=== PATIENT | male | born 1965 | race Caucasian/White ===

== ENCOUNTER 2017-05-24 16:02 | Inpatient (IN) | payer MEDICARE, OTHER ==
[2017-05-24] MEDS ORDERED: IPRATROPIUM-ALBUTEROL 3 ML NEB INHALATION STA (17:36)
--- NOTE | 2017-05-24 17:39 | ED ---
General Adult HPI - General Chief complaint: Shortness of Breath Stated complaint: Dyspnea Time Seen by Provider: 05/24/17 17:30 Source: patient, RN notes reviewed Mode of arrival: wheelchair Limitations: no limitations - History of Present Illness Initial comments: Patient is a pleasant 51-year-old male presenting to the emergency Department with complaints of shortness of breath. Onset of symptoms was yesterday. Symptoms have progressively worsened since that time. Patient does have history of heart valve replacement and is on Coumadin. Last Coumadin level is reported as okay to him 2 weeks ago. No chest pain. Dyspnea does worsen with lying flat. Patient does have history of pulmonary embolism. - Related Data Home Medications Medication Instructions Recorded Confirmed Baclofen [Lioresal] 10 mg PO QID 05/24/17 05/24/17 HYDROcodone/APAP 10-325MG [[place] 1 tab PO Q6H PRN 05/24/17 05/24/17 10-325] Ipratropium Nebulized [Atrovent 0.5 mg INHALATION RT-Q4H PRN 05/24/17 05/24/17 Nebulized] Losartan Potassium 100 mg PO DAILY 05/24/17 05/24/17 Nitroglycerin Sl Tabs [Nitrostat] 0.4 mg SUBLINGUAL Q5M PRN 05/24/17 05/24/17 Warfarin [Coumadin] 2 mg PO TUTH 05/24/17 05/24/17 Warfarin [Coumadin] 5 mg PO DAILY 05/24/17 05/24/17 Allergies Allergy/AdvReac Type Severity Reaction Status Date / Time No Known Allergies Allergy Verified 05/24/17 17:40 Review of Systems ROS Statement: Those systems with pertinent positive or pertinent negative responses have been documented in the HPI. ROS Other: All systems not noted in ROS Statement are negative. Constitutional: Denies: fever Eyes: Denies: eye pain ENT: Denies: ear pain Respiratory: Reports: cough (Mild and nonproductive), dyspnea Cardiovascular: Denies: chest pain Endocrine: Denies: fatigue Gastrointestinal: Denies: abdominal pain Genitourinary: Denies: dysuria Musculoskeletal: Denies: back pain Skin: Denies: rash Neurological: Denies: weakness Past Medical History Past Medical History: Hypertension, Pulmonary Embolus (PE) History of Any Multi-Drug Resistant Organisms: None Reported Additional Past Surgical History / Comment(s): aortic valve replacement, cervical fusion Past Psychological History: No Psychological Hx Reported Smoking Status: Former smoker Past Alcohol Use History: None Reported Past Drug Use History: None Reported General Exam Limitations: no limitations General appearance: alert Head exam: Present: atraumatic Eye exam: Present: normal appearance, PERRL ENT exam: Present: normal oropharynx Neck exam: Present: normal inspection Respiratory exam: Present: normal lung sounds bilaterally Cardiovascular Exam: Present: regular rate, normal rhythm, systolic murmur GI/Abdominal exam: Present: soft. Absent: tenderness Extremities exam: Present: normal inspection. Absent: pedal edema, calf tenderness Neurological exam: Present: alert Psychiatric exam: Present: normal affect, normal mood Skin exam: Present: normal color Course Vital Signs 05/24/17 05/24/17 05/24/17 16:19 17:55 18:04 Temperature 99.6 F Pulse Rate 93 89 89 Respiratory 18 Rate Blood Pressure 119/78 O2 Sat by Pulse 96 Oximetry 05/24/17 18:47 Temperature Pulse Rate 89 Respiratory 18 Rate Blood Pressure 112/58 O2 Sat by Pulse 97 Oximetry EKG Findings - EKG Comments: EKG Findings:: Bigeminy appearance with a rate of 87. [place] 176. QRS 118. QTC 460. QTC 553. Left axis. Left anterior fascicular block. Nonspecific ST-T. Medical Decision Making - Medical Decision Making Patient reevaluated and does feel somewhat better. Patient is requesting admission at this time. Patient is aware of findings at this time. Computed tomography scan will be ordered secondary to unknown cause of dyspnea. Case was discussed in detail with Dr. cruz who did see the patient earlier today. He will admit this patient. He is aware of pending computed tomography scan. Patient has sub-therapeutic INR and he does recommend a single dose of Lovenox at this time and will further manage following this. She also request consult with Dr. Harrington from pulmonary who has previously seen this patient. - Lab Data Result diagrams: 05/24/17 17:50 05/24/17 17:50 Lab Results 05/24/17 05/24/17 05/24/17 Range/Units 17:50 17:50 17:50 WBC 9.8 (3.8-10.6) k/uL RBC 3.92 L (4.30-5.90) m/uL Hgb 11.0 L (13.0-17.5) gm/dL Hct 35.5 L (39.0-53.0) % MCV 90.6 (80.0-100.0) fL MCH 28.1 (25.0-35.0) pg MCHC 31.0 (31.0-37.0) g/dL RDW 16.1 H (11.5-15.5) % Plt Count 277 (150-450) k/uL Neutrophils % 77 % Lymphocytes % 16 % Monocytes % 4 % Eosinophils % 1 % Basophils % 1 % Neutrophils # 7.5 (1.3-7.7) k/uL Lymphocytes # 1.6 (1.0-4.8) k/uL Monocytes # 0.4 (0-1.0) k/uL Eosinophils # 0.1 (0-0.7) k/uL Basophils # 0.1 (0-0.2) k/uL Hypochromasia Moderate Poikilocytosis Slight Anisocytosis Slight PT (9.0-12.0) sec INR (<1.2) APTT (22.0-30.0) sec D-Dimer (<0.60) mg/L FEU Sodium 139 (137-145) mmol/L Potassium 4.3 (3.5-5.1) mmol/L Chloride 102 (98-107) mmol/L Carbon Dioxide 25 (22-30) mmol/L Anion Gap 12 mmol/L BUN 11 (9-20) mg/dL Creatinine 0.80 (0.66-1.25) mg/dL Est GFR (MDRD) Af Amer >60 (>60 ml/min/1.73 sqM) Est GFR (MDRD) Non-Af >60 (>60 ml/min/1.73 sqM) Glucose 106 H (74-99) mg/dL Calcium 9.5 (8.4-10.2) mg/dL Total Bilirubin 0.9 (0.2-1.3) mg/dL AST 19 (17-59) U/L ALT 32 (21-72) U/L Alkaline Phosphatase 65 (38-126) U/L Total Creatine Kinase 95 (55-170) U/L CK-MB (CK-2) 0.9 (0.0-2.4) ng/mL CK-MB (CK-2) Rel Index 0.9 Troponin I 0.017 (0.000-0.034) ng/mL NT-Pro-B Natriuret Pep pg/mL Total Protein 6.5 (6.3-8.2) g/dL Albumin 4.2 (3.5-5.0) g/dL 05/24/17 05/24/17 Range/Units 17:50 17:50 WBC (3.8-10.6) k/uL RBC (4.30-5.90) m/uL Hgb (13.0-17.5) gm/dL Hct (39.0-53.0) % MCV (80.0-100.0) fL MCH (25.0-35.0) pg MCHC (31.0-37.0) g/dL RDW (11.5-15.5) % Plt Count (150-450) k/uL Neutrophils % % Lymphocytes % % Monocytes % % Eosinophils % % Basophils % % Neutrophils # (1.3-7.7) k/uL Lymphocytes # (1.0-4.8) k/uL Monocytes # (0-1.0) k/uL Eosinophils # (0-0.7) k/uL Basophils # (0-0.2) k/uL Hypochromasia Poikilocytosis Anisocytosis PT 10.8 (9.0-12.0) sec INR 1.1 (<1.2) APTT 24.5 (22.0-30.0) sec D-Dimer 0.37 (<0.60) mg/L FEU Sodium (137-145) mmol/L Potassium (3.5-5.1) mmol/L Chloride (98-107) mmol/L Carbon Dioxide (22-30) mmol/L Anion Gap mmol/L BUN (9-20) mg/dL Creatinine (0.66-1.25) mg/dL Est GFR (MDRD) Af Amer (>60 ml/min/1.73 sqM) Est GFR (MDRD) Non-Af (>60 ml/min/1.73 sqM) Glucose (74-99) mg/dL Calcium (8.4-10.2) mg/dL Total Bilirubin (0.2-1.3) mg/dL AST (17-59) U/L ALT (21-72) U/L Alkaline Phosphatase (38-126) U/L Total Creatine Kinase (55-170) U/L CK-MB (CK-2) (0.0-2.4) ng/mL CK-MB (CK-2) Rel Index Troponin I (0.000-0.034) ng/mL NT-Pro-B Natriuret Pep 168 pg/mL Total Protein (6.3-8.2) g/dL Albumin (3.5-5.0) g/dL - Radiology Data Radiology results: image reviewed (Chest x-ray reveals no acute process. Postoperative changes.) Disposition Clinical Impression: Dyspnea Disposition: ADMITTED IP TO THIS HOSP Referrals: Nicola Blum MD [Primary Care Provider] - 1-2 days Decision Time: 20:25
[2017-05-24 18:17] LABS: Anisocytosis Slight; Basophils # (A) 0.1 k/uL (0-0.2); Basophils % (A) 1 %; CH 28.9; Eosinophils # (A) 0.1 k/uL (0-0.7); Eosinophils % (A) 1 %; HCT 35.5 % (39.0-53.0); Hypochromasia Moderate; Luc # (Auto) 0.18; Luc % (Auto) 2; Lymphocytes # (A) 1.6 k/uL (1.0-4.8); Lymphocytes % (A) 16 %; MCH 28.1 pg (25.0-35.0); MCV 90.6 fL (80.0-100.0); Mean Platelet Volume 7.9; Monocytes # (A) 0.4 k/uL (0-1.0); Monocytes % (A) 4 %; Neutrophils # (A) 7.5 k/uL (1.3-7.7); Neutrophils % (A) 77 %; Poikilocytosis Slight; RBC 3.92 m/uL (4.30-5.90); RDW 16.1 % (11.5-15.5); WBC 9.8 k/uL (3.8-10.6); WBC (Perox) 9.54
[2017-05-24 18:22] LABS: ALT 32 U/L (21-72); AST 19 U/L (17-59); Alkaline Phosphatase 65 U/L (38-126); Blood Urea Nitrogen 11 mg/dL (9-20); Calcium 9.5 mg/dL (8.4-10.2); Carbon Dioxide 25 mmol/L (22-30); Glucose 106 mg/dL (74-99); Non-African American GFR(MDRD) >60 (>60 ml/min/1.73 sqM); Potassium 4.3 mmol/L (3.5-5.1); Sodium 139 mmol/L (137-145); Total Bilirubin 0.9 mg/dL (0.2-1.3); Total Protein 6.5 g/dL (6.3-8.2)
[2017-05-24 18:25] LABS: Anion Gap 12 mmol/L; Chloride 102 mmol/L (98-107)
[2017-05-24 18:27] LABS: INR 1.1 (<1.2); Partial Thromboplastin Time 24.5 sec (22.0-30.0); Prothrombin Time 10.8 sec (9.0-12.0)
--- NOTE | 2017-05-24 18:36 | XR ---
EXAMINATION TYPE: XR chest 2V DATE OF EXAM: 05/24/2017 COMPARISON: NONE HISTORY: Short of breath TECHNIQUE: Frontal and lateral views of the chest are obtained. FINDINGS: Heart and mediastinum are normal. Lungs are clear. Diaphragm is normal. There are sternal wires. Bony thorax is intact. IMPRESSION: Normal chest. Previous cardiac surgery noted. Aortic valve prosthesis.
[2017-05-24 18:43] LABS: Creatine Kinase MB 0.9 ng/mL (0.0-2.4); Troponin I 0.017 ng/mL (0.000-0.034)
[2017-05-24] MEDS ORDERED: HYDROmorphone 1 MG/ML 1 ML SYRINGE IVP STA (19:55)
[2017-05-24] MEDS ORDERED: RX INFO: IV CONTRAST WAS GIVEN 1 EACH MISC MISCELLANE PRN (19:55)
[2017-05-24] MEDS ORDERED: ENOXAPARIN 120 MG/0.8 ML SYRINGE SQ STA (20:22)
[2017-05-24] MEDS ORDERED: methylPREDNISolone SOD SUCCI 125 MG/2 ML VIAL IV STA (20:25)
[2017-05-24] MEDS ORDERED: IPRATROPIUM-ALBUTEROL 3 ML NEB INHALATION PRN (20:25)
--- NOTE | 2017-05-24 20:39 | CT ---
EXAMINATION TYPE: CT angio chest DATE OF EXAM: 05/24/2017 8:27 PM COMPARISON: NONE HISTORY: Shortness of breath CT DLP: 516.5 mGycm Automated exposure control for dose reduction was used. CONTRAST: CTA scan of the thorax is performed with IV Contrast, patient injected with 100 mL of Omnipaque 350, pulmonary embolism protocol. There are 3-D post processed images.. FINDINGS: The lungs are clear of infiltrate. There is no evidence of a pulmonary mass. There is no pleural effu jose m. There is evidence of fatty infiltration of the liver. Heart size is normal. There is no pericardial effusion. There is no mediastinal adenopathy. There appears to be a small filling defect in a small branch of the left lower lobe pulmonary artery. This is best seen on coronal image 103. There is aneurysm of the ascending aorta that measures 3.8 cm. There is no sign of dissection. There are small bilateral bronchial lymph nodes that measure up to 1 cm. 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 NO DISSECTION. SMALL EMBOLISM IN THE LEFT LOWER LOBE PULMONAR Y ARTERY. THIS EXAM WAS DISCUSSED WITH THE ER PHYSICIAN AT 8:35 PM.
[2017-05-25] MEDS: methylPREDNISolone SOD SUCCI 125 MG/2 ML VIAL IV SCH ×4 (00:42→13:04)
[2017-05-25] MEDS: ENOXAPARIN 120 MG/0.8 ML SYRINGE SQ SCH ×2 (08:07→21:59)
[2017-05-25] MEDS: IPRATROPIUM-ALBUTEROL 3 ML NEB INHALATION SCH ×4 (09:10→21:00)
--- NOTE | 2017-05-25 09:45 | P.CNPUL ---
History of Present Illness Consult date: 05/25/17 Reason for consult: cough, COPD, pneumonia Chief complaint: Cough shortness of breath for 2 days prior to coming to the hospital History of present illness: Patient is a pleasant 51-year-old male presenting to the emergency Department with complaints of shortness of breath. Onset of symptoms was one day prior. Symptoms have progressively worsened since that time. Patient does have history of heart valve replacement and is on Coumadin. Last Coumadin level is reported as okay to him 2 weeks ago. No chest pain. Dyspnea does worsen with lying flat. Patient does have history of pulmonary embolism. Review of Systems All systems: negative (dictated above except as dictated above) Constitutional: Reports chills, Reports fever, Reports malaise, Reports sweats, Reports weakness Eyes: denies as per HPI, denies blurred vision, denies bulging eye, denies decreased vision, denies diplopia, denies discharge, denies dry eye, denies irritation, denies itching, denies pain, denies photophobia, denies loss of peripheral vision, denies loss of vision, denies tunnel vision/blind spots Ears: deny: decreased hearing, ear discharge, earache, tinnitus Ears, nose, mouth and throat: Denies headache, Denies sore throat Cardiovascular: Reports as per HPI Respiratory: Reports as per HPI Gastrointestinal: Reports as per HPI Genitourinary: Reports as per HPI Musculoskeletal: Reports as per HPI Musculoskeletal: absent: as per HPI Integumentary: Reports as per HPI Neurological: Reports as per HPI Psychiatric: Reports as per HPI Endocrine: Reports as per HPI Hematologic/Lymphatic: Reports as per HPI Allergic/Immunologic: Reports as per HPI Past Medical History Past Medical History: COPD, Hypertension, Osteoarthritis (OA), Pulmonary Embolus (PE), Sleep Apnea/CPAP/BIPAP Additional Past Medical History / Comment(s): NO CPAP USED History of Any Multi-Drug Resistant Organisms: None Reported Past Surgical History: Heart Catheterization Additional Past Surgical History / Comment(s): aortic valve replacement([facility]- SEE COPY OF CARD ON CHART), cervical fusion-HAS SCREWS, LT KNEE SRTHROSCOPY Past Anesthesia/Blood Transfusion Reactions: No Reported Reaction Smoking Status: Former smoker - Past Family History Father Family Medical History: Cancer Mother Family Medical History: Diabetes Mellitus Medications and Allergies Home Medications Medication Instructions Recorded Confirmed Type Baclofen [Lioresal] 10 mg PO QID 05/24/17 05/24/17 History HYDROcodone/APAP 10-325MG [[place] 1 tab PO Q6H PRN 05/24/17 05/24/17 History 10-325] Ipratropium Nebulized [Atrovent 0.5 mg INHALATION RT-Q4H PRN 05/24/17 05/24/17 History Nebulized] Losartan Potassium 100 mg PO DAILY 05/24/17 05/24/17 History Nitroglycerin Sl Tabs [Nitrostat] 0.4 mg SUBLINGUAL Q5M PRN 05/24/17 05/24/17 History Warfarin [Coumadin] 2 mg PO TUTH 05/24/17 05/24/17 History Warfarin [Coumadin] 5 mg PO DAILY 05/24/17 05/24/17 History Allergies Allergy/AdvReac Type Severity Reaction Status Date / Time No Known Allergies Allergy Verified 05/24/17 17:40 Physical Exam Vitals: Vital Signs Temp Pulse Pulse Resp BP BP Pulse Ox 05/25/17 09:10 83 14 95 05/25/17 07:00 97.4 F L 74 18 119/80 96 05/24/17 23:00 98.1 F 53 L 16 127/73 93 L 05/24/17 21:30 97.9 F 81 18 125/55 96 05/24/17 21:23 98.0 F 81 16 125/55 96 05/24/17 18:47 89 18 112/58 97 05/24/17 18:04 89 05/24/17 17:55 89 05/24/17 16:19 99.6 F 93 18 119/78 96 Intake and Output 05/24/17 05/25/17 05/25/17 22:59 06:59 14:59 Intake Total 250 250 Balance 250 250 Intake: Oral 250 250 Other: # Voids 4 Weight 120.202 kg - Constitutional General appearance: average body habitus, disheveled, no acute distress, obese - EENT Eyes: EOMI, PERRLA ENT: normal oropharynx Ears: bilateral: normal - Neck Neck: no lymphadenopathy, normal ROM Carotids: negative: upstroke normal, upstroke delayed, upstroke diminished, upstroke bounding, bruit absent, bruit present Thyroid: bilateral: normal size - Respiratory Respiratory: right: diminished (At base), bilateral: CTA, dullness, negative: rales, rhonchi, wheezing, prolonged expiration, prolonged inspiration - Cardiovascular Rhythm: regular Heart sounds: normal: S1, S2 - Gastrointestinal General gastrointestinal: no organomegaly, soft, no tenderness - Integumentary Normal - Neurologic Neurologic: CNII-XII intact - Musculoskeletal Musculoskeletal: gait normal - Psychiatric Psychiatric: A&O x's 3 Results EKG revealed left anterior fascicular block, nonspecific ST and T wave changes with prolonged QT interval Computed tomography scan of the chest revealed 3.8 cm aneurysm no dissection, small embolism in the left lower lobe pulmonary artery - Laboratory Findings CBC and BMP: 05/24/17 17:50 05/24/17 17:50 PT/INR, D-dimer PT 10.8 sec (9.0-12.0) 05/24/17 17:50 INR 1.1 (<1.2) 05/24/17 17:50 D-Dimer 0.37 mg/L FEU (<0.60) 05/24/17 17:50 Abnormal lab findings: Abnormal Labs 05/24/17 05/24/17 17:50 17:50 RBC 3.92 L Hgb 11.0 L Hct 35.5 L RDW 16.1 H Glucose 106 H - Diagnostic Findings CT scan - chest: other (As dictated above) Assessment and Plan Plan: Acute pulmonary embolism acute COPD exacerbation subtherapeutic PT/INR recent heart valve surgery Would recommend to continue bronchodilators and IV steroids and breathing treatments patient has been on Lovenox Agri will be resuming Coumadin once INR is over 2.5 her DC the Lovenox Time with Patient: Greater than 30
[2017-05-25 11:50] LABS: Glucose,Whole Blood 248 mg/dL (75-99)
[2017-05-25] MEDS ORDERED: INSULIN LISPRO (humaLOG) 300 UNIT/3 ML VIAL SQ SCH (12:30)
[2017-05-25] MEDS: INSULIN LISPRO (humaLOG) 300 UNIT/3 ML VIAL SQ SCH ×3 (13:04→22:00)
--- NOTE | 2017-05-25 13:59 | P.CRDCN ---
<Rajni Reed Darren - Last Filed: 05/25/17 13:41> History of Present Illness Consult date: 05/25/17 History of present illness: This is a 51-year-old male. Past medical history significant for aortic valve replacement from 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 He also has a history of hypertension, COPD, pulmonary embolism. Patient presents with complaints of acute shortness of breath described as difficulty to take in enough air. Patient states this was similar to pulmonary embolism he had back 4 -5 years ago. He denies chest pain, dizziness, palpitations, nausea, vomiting or diaphoresis. He states the shortness of breath has gotten better since he's been here in the hospital and using oxygen. He follows with a client application support specialist out of [facility] regularly. He states he has had a cardiac catheterization in the past but required no stenting and has no coronary artery disease that he is aware of. EKG done shows sinus mechanism with bigemminy and prolonged QT with a rate of 87 beats per minute. There is no old EKG for comparison. Hemoglobin 11.0, potassium 4.3, B1 11, creatinine 0.80, INR 1.1, troponin negative 1, BNP 168, d-dimer 0.37. Review of Systems REVIEW OF SYSTEMS: Patient denies any chest discomfort. Mild shortness of breath, improving. No diaphoresis. Denies headache, dizziness, blurred vision, double vision. No dyspnea on exertion. Patient denies any stomach discomfort. No nausea, vomiting. No hematochezia. No hematemesis. Denies any black stools or blood in his stools. No syncope. No palpitations. No cough. No recent fever or chills. No muscle weakness or numbness. Past Medical History Past Medical History: COPD, Hypertension, Osteoarthritis (OA), Pulmonary Embolus (PE), Sleep Apnea/CPAP/BIPAP Additional Past Medical History / Comment(s): NO CPAP USED History of Any Multi-Drug Resistant Organisms: None Reported Past Surgical History: Heart Catheterization Additional Past Surgical History / Comment(s): aortic valve replacement([facility]- SEE COPY OF CARD ON CHART), cervical fusion-HAS SCREWS, LT KNEE SRTHROSCOPY Past Anesthesia/Blood Transfusion Reactions: No Reported Reaction Smoking Status: Former smoker - Past Family History Father Family Medical History: Cancer Mother Family Medical History: Diabetes Mellitus Medications and Allergies Home Medications Medication Instructions Recorded Confirmed Type Baclofen [Lioresal] 10 mg PO QID 05/24/17 05/24/17 History HYDROcodone/APAP 10-325MG [[place] 1 tab PO Q6H PRN 05/24/17 05/24/17 History 10-325] Ipratropium Nebulized [Atrovent 0.5 mg INHALATION RT-Q4H PRN 05/24/17 05/24/17 History Nebulized] Losartan Potassium 100 mg PO DAILY 05/24/17 05/24/17 History Nitroglycerin Sl Tabs [Nitrostat] 0.4 mg SUBLINGUAL Q5M PRN 05/24/17 05/24/17 History Warfarin [Coumadin] 2 mg PO TUTH 05/24/17 05/24/17 History Warfarin [Coumadin] 5 mg PO DAILY 05/24/17 05/24/17 History Allergies Allergy/AdvReac Type Severity Reaction Status Date / Time No Known Allergies Allergy Verified 05/24/17 17:40 Physical Exam Vitals: Vital Signs Temp Pulse Pulse Resp BP BP Pulse Ox 05/25/17 12:15 83 14 05/25/17 12:04 83 14 05/25/17 09:20 83 16 05/25/17 09:10 83 14 95 05/25/17 07:00 97.4 F L 74 18 119/80 96 05/24/17 23:00 98.1 F 53 L 16 127/73 93 L 05/24/17 21:30 97.9 F 81 18 125/55 96 05/24/17 21:23 98.0 F 81 16 125/55 96 05/24/17 18:47 89 18 112/58 97 05/24/17 18:04 89 05/24/17 17:55 89 05/24/17 16:19 99.6 F 93 18 119/78 96 Intake and Output 05/24/17 05/25/17 05/25/17 22:59 06:59 14:59 Intake Total 250 250 Balance 250 250 Intake: Oral 250 250 Other: # Voids 4 Weight 120.202 kg GENERAL: This is a 51-year-old male in no apparent distress at the time of my examination. HEENT: Head is atraumatic, normocephalic. Pupils are equal, round. Sclerae anicteric. Conjunctivae are clear. Mucous membranes of the mouth are moist. Neck is supple. There is no jugular venous distention. No carotid bruit is heard. LUNGS: Clear to auscultation no wheezes, rales or rhonchi. No chest wall tenderness is noted on palpation or with deep breathing. Diminished air entry. HEART: Regular rate and rhythm with systolic click, no rubs or gallops. S1 and S2 heard. ABDOMEN: Soft, nontender. Bowel sounds are heard. No organomegaly noted. EXTREMITIES: 2+ peripheral pulses with no evidence of peripheral edema and no calf tenderness noted. NEUROLOGIC: Patient is awake, alert and oriented x3. Results 05/24/17 17:50 05/24/17 17:50 Cardiac Enzymes 05/24/17 05/24/17 Range/Units 17:50 17:50 AST 19 (17-59) U/L CK-MB (CK-2) 0.9 (0.0-2.4) ng/mL Troponin I 0.017 (0.000-0.034) ng/mL Coagulation 05/24/17 Range/Units 17:50 PT 10.8 (9.0-12.0) sec APTT 24.5 (22.0-30.0) sec CBC 05/24/17 Range/Units 17:50 WBC 9.8 (3.8-10.6) k/uL RBC 3.92 L (4.30-5.90) m/uL Hgb 11.0 L (13.0-17.5) gm/dL Hct 35.5 L (39.0-53.0) % Plt Count 277 (150-450) k/uL Comprehensive Metabolic Panel 05/24/17 Range/Units 17:50 Sodium 139 (137-145) mmol/L Potassium 4.3 (3.5-5.1) mmol/L Chloride 102 (98-107) mmol/L Carbon Dioxide 25 (22-30) mmol/L BUN 11 (9-20) mg/dL Creatinine 0.80 (0.66-1.25) mg/dL Glucose 106 H (74-99) mg/dL Calcium 9.5 (8.4-10.2) mg/dL AST 19 (17-59) U/L ALT 32 (21-72) U/L Alkaline Phosphatase 65 (38-126) U/L Total Protein 6.5 (6.3-8.2) g/dL Albumin 4.2 (3.5-5.0) g/dL Current Medications Generic Name Dose Route Start Last Admin Trade Name Freq PRN Reason Stop Dose Admin Albuterol/Ipratropium 3 ml 05/25/17 08:00 05/25/17 12:04 Duoneb 0.5 Mg-3 Mg/3 Ml Soln INHALATION 3 ml RT-QID SNOW Administration Albuterol/Ipratropium 3 ml 05/24/17 20:25 Duoneb 0.5 Mg-3 Mg/3 Ml Soln INHALATION RT-Q4H PRN Shortness Of Breath Or Wheezing Enoxaparin Sodium 120 mg 05/25/17 09:00 05/25/17 08:07 Lovenox SQ 120 mg Q12HR SNOW Administration Insulin Human Lispro 0 unit 05/25/17 12:30 Humalog SQ AC-TID SNOW Methylprednisolone Sodium Succinate 60 mg 05/25/17 00:00 05/25/17 05:57 Solu-Medrol IV 60 mg Q6HR SNOW Administration Miscellaneous Information 1 each 05/24/17 19:55 Rx Info: Iv Contrast Was Given MISCELLANE 05/26/17 19:55 DAILY PRN Per Protocol Warfarin Sodium 10 mg 05/25/17 18:00 Coumadin PO DAILY@1800 SNOW Intake and Output 05/24/17 05/25/17 05/25/17 22:59 06:59 14:59 Intake Total 250 250 Balance 250 250 Intake: Oral 250 250 Other: # Voids 4 Weight 120.202 kg 05/24/17 17:50 05/24/17 17:50 Assessment and Plan Plan: ASSESSMENT 1. Abnormal EKG 2. History of mechanical aortic valve replacement on chronic anticoagulation 3. Subtherapeutic INR 4. Pulmonary embolism PLAN Obtain old EKG; Perform echocardiogram; We will continue to follow this patient, further recommendations will be based on clinical course. Nurse Practitioner note has been reviewed, I agree with a documented findings and plan of care. Patient was seen and examined. <Shannan Christian - Last Filed: 05/26/17 05:52> Physical Exam Vitals: Vital Signs Temp Pulse Pulse Resp BP Pulse Ox 08/22/17 22:19 97.0 F L 72 16 124/62 100 05/25/17 21:13 80 05/25/17 21:00 78 05/25/17 16:50 82 95 05/25/17 16:40 80 05/25/17 15:00 97.6 F 95 16 126/79 93 L 05/25/17 12:15 83 14 05/25/17 12:04 83 14 05/25/17 09:20 83 16 05/25/17 09:10 83 14 95 05/25/17 07:00 97.4 F L 74 18 119/80 96 Intake and Output 05/25/17 05/25/17 05/26/17 14:59 22:59 06:59 Intake Total 500 590 Balance 500 590 Intake: Oral 500 590 Other: # Voids 3 1 2 Results 05/24/17 17:50 05/24/17 17:50 Current Medications Generic Name Dose Route Start Last Admin Trade Name Freq PRN Reason Stop Dose Admin Hydrocodone Bitart/Acetaminophen 1 each 05/25/17 13:09 05/25/17 21:46 [place] 10 PO 1 each Q6H PRN Administration Moderate Pain Albuterol/Ipratropium 3 ml 05/25/17 08:00 05/25/17 21:00 Duoneb 0.5 Mg-3 Mg/3 Ml Soln INHALATION 3 ml RT-QID SNOW Administration Albuterol/Ipratropium 3 ml 05/24/17 20:25 Duoneb 0.5 Mg-3 Mg/3 Ml Soln INHALATION RT-Q4H PRN Shortness Of Breath Or Wheezing Baclofen 10 mg 05/25/17 19:35 05/25/17 21:47 Lioresal PO 10 mg QID PRN Administration Muscle Spasm Enoxaparin Sodium 120 mg 05/25/17 09:00 05/25/17 21:59 Lovenox SQ 120 mg Q12HR SNOW Administration Insulin Human Lispro 0 unit 05/25/17 13:00 05/25/17 22:00 Humalog SQ 8 unit ACHS SNOW Administration Protocol Methylprednisolone Sodium Succinate 60 mg 05/25/17 00:00 05/26/17 00:00 Solu-Medrol IV 60 mg Q6HR SNOW Administration Miscellaneous Information 1 each 05/24/17 19:55 Rx Info: Iv Contrast Was Given MISCELLANE 05/26/17 19:55 DAILY PRN Per Protocol Warfarin Sodium 10 mg 05/25/17 18:00 05/25/17 17:39 Coumadin PO 10 mg DAILY@1800 SNOW Administration Intake and Output 05/25/17 05/25/17 05/26/17 14:59 22:59 06:59 Intake Total 500 590 Balance 500 590 Intake: Oral 500 590 Other: # Voids 3 1 2 05/24/17 17:50 05/24/17 17:50 Assessment and Plan Plan: patient's baseline EKG showed bigeminal pattern of PVCs. It's difficult to assess QT interval accurately. We'll repeat the EKG . patient's echocardiogram showed high gradient across the prosthetic aortic valve. Clinically, the valve sounds appear to be crisp. We'll try to get reports of the previous echocardiogram to compare the gradients. Patient, however, doesn' t want to consider any further valve surgery. Further recommendations to follow.
[2017-05-25] MEDS: HYDROcodone/APAP 10-325MG 1 EACH TAB PO PRN ×2 (14:06→21:46)
[2017-05-25 17:16] LABS: Glucose,Whole Blood 274 mg/dL (75-99)
[2017-05-25] MEDS: WARFARIN 10 MG TAB PO SCH (17:39)
[2017-05-25 20:38] LABS: Glucose,Whole Blood 248 mg/dL (75-99)
--- NOTE | 2017-05-25 21:22 | PN ---
This patient is a 51-year-old white male who was admitted with acute shortness of breath and ended up with pulmonary emboli, large in the right, very similar to what he had back in November of 2014. At this time he is kept on Lovenox, and also we put him on Coumadin; we started his Coumadin again. 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 He has had borderline hypertension. SOCIAL HISTORY: He is a nonsmoker; stopped now within the last year. He has a history of asthma. He also has some early COPD. His pulmonary emboli was documented on CT scan. REVIEW OF SYSTEMS: CARDIOPULMONARY: He has some shortness of breath but he rests much more comfortably this morning. No orthopnea. No hemoptysis. GI: No hematemesis or hematochezia. No nausea. No vomiting. No melena. : Normal urination. NEUROMUSCULAR: He has aches and pains in his neck and upper back from post surgery, still with a fair amount of arthritis. Lower legs have some cramping. PHYSICAL EXAMINATION: This morning his blood pressure is 127/73, heart rate in the 50s to 74. Temperature is 97.4, respiratory rate 18. He is on 3 L of oxygen that gives him an oxygen saturation of 96. EYES: Pupils are equal, round, reactive to light and accommodation. ENT showed tympanic membranes and pharynx to be negative. Neck is supple with a midline trachea. No carotid bruits. CHEST: He has some wheezes in the right upper lobe and you can also hear the clicking of his heart valve. He is in sinus rhythm. Negative S3. Negative S4. No S2 split. ABDOMEN: Soft, non-tender to palpation. No masses. No organomegaly. LOWER EXTREMITIES: Swelling is negative. INTEGUMENTARY: As mentioned above. ASSESSMENT: 1. Acute pulmonary emboli. For the most part, patient's Coumadin level stays stable and then it does drop from time to time. Patient denies missing medication. Will try to see if we can get insurance to pay for either Eliquis or Xarelto. Will ask for pulmonology consultation. 2. Aortic valve replacement. We will ask Cardiology to see the patient for evaluation. 3. Borderline hypertension, but today it is stable. 4. History of chronic obstructive pulmonary disease and asthma. We have him on updrafts for this, at times low-dose steroids. 5. Cervical spine arthritis which is severe postoperatively. He is on [place] for pain. We will keep him on Lovenox 120 mg q.12 at this point. DuoNeb every 4 hours p.r.n. for the wheeze. His prognosis is guarded. Plan is to anticoagulate him and either Coumadin to therapeutic level or alternative. Please refer to my orders. MTDD
--- NOTE | 2017-05-25 21:39 | HP ---
DATE OF ADMISSION: 05/24/2017 CHIEF COMPLAINT: Dyspnea, problems with breathing acutely. 51-year-old white male that came to the emergency room from my office with acute shortness of breath. He has had past medical history of aortic valve replacement and also cervical fusion as far as surgery goes. He is a former cigarette smoker. No alcohol and questionable use of marijuana but no other abusive drug. He was hospitalized at [facility] on 11/30/14 with the same dyspnea. Upon admission a V/Q scan was done which showed a high probability of pulmonary emboli. At that time he had been on Lovenox and has been switched over to a therapeutic Coumadin. He was in moderate amount of distress at that period of time and it resolved quite quickly and when we finally got his Coumadin level within normal limits he was discharged home. At this time he is having the same type of symptomatology. He has no known allergies. His medications are that of [place] 10/325 every six hours. He takes updrafts at home with albuterol/Atrovent every four hours. He is on losartan 100 mg daily. He is on nitroglycerin p.r.n. He is on warfarin 7 mg at bedtime, a 2 and a 5. He came into the hospital at this time with a decrease in his Coumadin level. His lab work came back with a WBC of 9.8, 11 hemoglobin. His platelet count is 277. HIs PT and INR were 1 and 10 respectively. He had a d-dimer that was only 0.37. Electrolytes were within normal limits as was his creatinine of 0.8 and a BUN of 11. His troponins were negative. Albumin was negative. His BNP was only 128. REVIEW OF SYSTEMS: CARDIOPULMONARY: Shortness of breath with exertion and also just sitting. Dyspnea had been going on for over 24 hours. He had no chest pain other than that. No paroxysmal nocturnal dyspnea. No orthopnea. GI: No hematemesis, melena or hematochezia. No nausea, no vomiting. : Urination is normal. NEUROMUSCULAR: Just severe pain in his shoulders and neck from previous surgery and injuries. VASCULAR: Has been negative in the past. INTEGUMENTARY: Lower skin has been within normal limits except for some bruises and excoriation of previous. PHYSICAL EXAMINATION: VITAL SIGNS: Upon admission he had a blood pressure initially of 138/58. His heart rate was 110, respiratory rate 22, temperature 98. EYES: Pupils are equal, round, react to light and accommodation. ENT: Showed tympanic membranes and pharynx to be negative. NECK: Supple with midline trachea. CHEST: Has some wheezes. HEART: Sinus rhythm with no murmur. ABDOMEN: Soft, nontender with no organomegaly. SPINE: His cervical spine has decreased range of motion. The anterior incision is seen from his previous surgery. He has decreased range of motion of the lower back. He has decreased pulses in his lower legs. INTEGUMENTARY: Within normal limits except for some stasis dermatitis and also some varicose veins. RECTAL: Not performed. ORDERS: Consultation was completed with cardiology because of valve. Dr. Eb Harrington was also consulted because of the pulmonary emboli. From a medication point of view, the patient had been started on Solu-Medrol 60 mg, Xopenex 120 q12, updrafts accordingly. We also started him on Coumadin to be changed over to oral Coumadin in the future. Please refer to my orders. ISIDRO
[2017-05-25] MEDS: BACLOFEN 10 MG TAB PO PRN (21:47)
[2017-05-26] MEDS: HYDROcodone/APAP 10-325MG 1 EACH TAB PO PRN ×3 (06:13→19:12)
[2017-05-26] MEDS: methylPREDNISolone SOD SUCCI 125 MG/2 ML VIAL IV SCH ×4 (06:13→18:12)
[2017-05-26] MEDS: IPRATROPIUM-ALBUTEROL 3 ML NEB INHALATION SCH ×4 (07:18→21:01)
[2017-05-26 07:28] LABS: Glucose,Whole Blood 232 mg/dL (75-99)
[2017-05-26] MEDS: ENOXAPARIN 120 MG/0.8 ML SYRINGE SQ SCH ×2 (08:01→20:56)
[2017-05-26] MEDS: INSULIN LISPRO (humaLOG) 300 UNIT/3 ML VIAL SQ SCH ×4 (08:01→20:56)
[2017-05-26 08:33] LABS: Prothrombin Time 10.5 sec (9.0-12.0)
--- NOTE | 2017-05-26 10:37 | ECHOF ---
Referral Reason:Shortness of breath MEASUREMENTS -------- HEIGHT: 182.9 cm WEIGHT: 129.3 kg BP: IVSd: 1.5 cm (0.6 - 1.1) LVIDd: 6.2 cm (3.9 - 5.3) LVPWd: 1.3 cm (0.6 - 1.1) IVSs: 1.7 cm LVIDs: 4.0 cm LVPWs: 1.6 cm LAESV Index (A-L): 32.43 ml/m Ao Diam: 2.9 cm (2.0 - 3.7) LA Diam: 4.8 cm (2.7 - 3.8) MV EXCURSION: 20.694 mm (> 18.000) MV EF SLOPE: 102 mm/s (70 - 150) EPSS: 0.3 cm MV E Haroldo: 0.97 m/s MV DecT: 307 ms MV A Haroldo: 1.10 m/s MV E/A Ratio: 0.88 AV maxP.86 mmHg AV meanP.99 mmHg RAP: 5.00 mmHg RVSP: 24.22 mmHg FINDINGS -------- Sinus rhythm. This was a technically adequate study. There is moderate concentric left ventricular hypertrophy. Overall left ventricular systolic function is low-normal with, an EF between 50 - 55 %. The right ventricle is normal in size. LA is moderately dilated 34-39 ml/m2 The right atrial size is normal. Peak/mean gradient across the Aortic Valve is 100.86mmHg / 56.99mmHg. 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 Mild mitral annular calcification present. Mild mitral regurgitation is present. Mild tricuspid regurgitation present. Right ventricular systolic pressure is normal at < 35 mmHg. There is borderline pulmonary artery hypertension. There is no pulmonic regurgitation present. The aortic root size is normal. There is no pericardial effusion. Pt had Mechanical Aov replacement in 2002 Chordal Fermin with possible Lvot obstruction gradient is aliasing, Silverio recommended for evaluation of valve. CONCLUSIONS -------- 1. There is moderate concentric left ventricular hypertrophy. 2. There is borderline pulmonary artery hypertension. 3. Pt had Mechanical Aov replacement in 2002 4. Chordal Fermin with possible Lvot obstruction gradient is aliasing, Silverio recommended for evaluation of valve. 5. Overall left ventricular systolic function is low-normal with, an EF between 50 - 55 %. 6. LA is moderately dilated 34-39 ml/m2 7. Peak/mean gradient across the Aortic Valve is 100.86mmHg / 56.99mmHg. 8. 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 9. Mild mitral annular calcification present. 10. Mild mitral regurgitation is present. 11. Mild tricuspid regurgitation present. 12. Right ventricular systolic pressure is normal at < 35 mmHg. MOLECULAR PATHOLOGIST: Lexus Sutherland RDCS
[2017-05-26] MEDS: ALPRAZolam 0.25 MG TAB PO PRN ×2 (10:48→19:12)
[2017-05-26 11:42] LABS: Glucose,Whole Blood 266 mg/dL (75-99)
--- NOTE | 2017-05-26 12:21 | P.PN ---
Subjective We are seeing the patient today in follow-up from consultation yesterday. An echocardiogram was ordered and performed and shows a significant gradient across the aortic valve. 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 The echocardiogram was done in November 2015 and shows a mean gradient of 29 with a peak of 57. There is significant increase in the new study. Objective - Vital Signs Vital signs: Vital Signs Temp 98 F 05/26/17 07:00 Pulse 71 05/26/17 11:23 Resp 16 05/26/17 07:00 BP 114/73 05/26/17 07:00 Pulse Ox 95 05/26/17 07:19 Intake & Output 05/25/17 05/26/17 05/26/17 18:59 06:59 18:59 Intake Total 1090 Balance 1090 Intake: Oral 1090 Other: # Voids 3 2 - Exam GENERAL: Well-appearing, well-nourished and in no acute distress. NECK: Supple without JVD or thyromegaly. LUNGS: Breath sounds clear to auscultation bilaterally. Respiration equal and unlabored. No wheezes, rales or rhonchi. Diminished air entry. HEART: Regular rate and rhythm with crisp systolic click, rubs or gallops. S1 and S2 heard. EXTREMITIES: Normal range of motion, no edema. No clubbing or cyanosis. Peripheral pulses intact and strong. - Labs CBC & Chem 7: 05/24/17 17:50 05/24/17 17:50 Labs: Abnormal Lab Results - Last 24 Hours (Table) 05/25/17 05/25/17 05/26/17 Range/Units 17:15 20:37 07:22 POC Glucose (mg/dL) 274 H 248 H 232 H (75-99) mg/dL 05/26/17 Range/Units 11:39 POC Glucose (mg/dL) 266 H (75-99) mg/dL Assessment and Plan Plan: ASSESSMENT 1. Abnormal EKG 2. History of mechanical aortic valve replacement on chronic anticoagulation 3. Subtherapeutic INR 4. Pulmonary embolism PLAN We recommended that the patient undergo a HAWK to further evaluate his valve. I have discussed the risks, benefits and alternative therapies for the above- mentioned procedure and for both sedation/analgesia as they pertain to this patient. The patient has indicated understanding and acceptance of the risks and procedures discussed. He has agreed to proceed with a HAWK tomorrow. It has been scheduled for 8 AM. The patient is to be nothing by mouth after midnight. Continue current dose of Coumadin. Nurse Practitioner note has been reviewed, I agree with a documented findings and plan of care. Patient was seen and examined.
--- NOTE | 2017-05-26 13:00 | US ---
EXAMINATION TYPE: US venous doppler duplex LE DATE OF EXAM: 05/26/2017 12:39 PM COMPARISON: NONE CLINICAL HISTORY: r/o dvt. History of Pulmonary embolism, patient currently taking blood thinners SIDE PERFORMED: Bilateral TECHNIQUE: The lower extremity deep venous system is examined utilizing real time linear array sonog gilbert with graded compression, doppler sonography and color-flow sonography. VESSELS IMAGED: External Iliac Vein (EIV) Common Femoral Vein Deep Femoral Vein Greater Saphenous Vein * Femoral Vein Popliteal Vein Small Saphenous Vein * Proximal Calf Veins (* superficial vessels) Right Leg: Negative for DVT Left Leg: Negative for DVT IMPRESSION: No diagnostic evidence for DVT as visualized.
[2017-05-26 17:15] LABS: Glucose,Whole Blood 226 mg/dL (75-99)
[2017-05-26] MEDS: WARFARIN 10 MG TAB PO SCH (18:12)
[2017-05-26 20:18] LABS: Glucose,Whole Blood 276 mg/dL (75-99)
[2017-05-27] MEDS: BACLOFEN 10 MG TAB PO PRN (00:43)
[2017-05-27] MEDS: methylPREDNISolone SOD SUCCI 125 MG/2 ML VIAL IV SCH ×2 (00:45→05:45)
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
[2017-05-27] MEDS ORDERED: MIDAZOLAM 2 MG/2 ML VIAL ONE (07:59)
[2017-05-27] MEDS ORDERED: fentaNYL (PF) 50 MCG/ML 2 ML AMP ONE (07:59)
[2017-05-27 08:01] LABS: INR 1.2 (<1.2); Partial Thromboplastin Time 27.4 sec (22.0-30.0)
[2017-05-27] MEDS ORDERED: SODIUM CHLORIDE 0.9% 1,000 ML IV ONE (08:12)
[2017-05-27 08:14] LABS: Glucose,Whole Blood 245 mg/dL (75-99)
[2017-05-27] MEDS: BENZOCAINE SPRAY 1 SPRAY CAN MUCOUS MEM ONE ×2 (08:21→08:25)
[2017-05-27] MEDS: MIDAZOLAM 2 MG/2 ML VIAL IVP ONE ×2 (08:21→08:58)
[2017-05-27] MEDS ORDERED: fentaNYL (PF) 50 MCG/ML 2 ML AMP IVP ONE (08:21)
[2017-05-27] MEDS ORDERED: MIDAZOLAM 2 MG/2 ML VIAL IVP ONE (08:25)
[2017-05-27] MEDS: IPRATROPIUM-ALBUTEROL 3 ML NEB INHALATION SCH ×4 (08:37→19:44)
[2017-05-27] MEDS: SODIUM CHLORIDE 0.9% 1,000 ML IV SCH (09:33)
[2017-05-27] MEDS: INSULIN LISPRO (humaLOG) 300 UNIT/3 ML VIAL SQ SCH ×4 (09:33→21:25)
[2017-05-27] MEDS: ENOXAPARIN 120 MG/0.8 ML SYRINGE SQ SCH ×2 (09:33→21:09)
--- NOTE | 2017-05-27 09:57 | P.PN ---
Subjective Principal diagnosis: Patient seen and evaluated examined today respiratory status overall stable, patient is being evaluated for aortic valve disease and consider for HAWK given presence of significant gradient across the aortic valve he has a pulmonary embolism with a subtherapeutic INR he remains on IV heparin, off not that he has a metallic valve and INR needs to be kept around 3 Objective - Vital Signs Vital signs: Vital Signs Temp 97.8 F 05/27/17 09:30 Pulse 63 05/27/17 09:30 Resp 16 05/27/17 09:30 BP 130/79 05/27/17 09:30 Pulse Ox 94 L 05/27/17 09:30 Intake & Output 05/26/17 05/27/17 05/27/17 18:59 06:59 18:59 Intake Total 200 150 Balance 200 150 Intake: IV 150 Oral 200 Other: Voiding Method Toilet # Voids 4 - Exam GENERAL: Well-appearing, well-nourished and in no acute distress. NECK: Supple without JVD or thyromegaly. LUNGS: Breath sounds clear to auscultation bilaterally. Respiration equal and unlabored. No wheezes, rales or rhonchi. Diminished air entry. HEART: Regular rate and rhythm with crisp systolic click, rubs or gallops. S1 and S2 heard. EXTREMITIES: Normal range of motion, no edema. No clubbing or cyanosis. Peripheral pulses intact and strong. - Labs CBC & Chem 7: 05/24/17 17:50 05/24/17 17:50 Labs: Abnormal Lab Results - Last 24 Hours (Table) 05/26/17 05/26/17 05/26/17 Range/Units 11:39 17:14 20:17 INR (<1.2) POC Glucose (mg/dL) 266 H 226 H 276 H (75-99) mg/dL 05/27/17 05/27/17 Range/Units 07:32 07:53 INR 1.2 H (<1.2) POC Glucose (mg/dL) 245 H (75-99) mg/dL Assessment and Plan Plan: 1. Acute pulmonary embolism acute COPD exacerbation subtherapeutic PT/INR recent heart valve surgery Would recommend to continue bronchodilators and IV steroids and breathing treatments patient has been on Lovenox Agri will be resuming Coumadin once INR is over 2.5 her DC the Lovenox 2. History of mechanical aortic valve replacement on chronic anticoagulation 3. Subtherapeutic INR 4. ALEXI patient to be evaluated further outpatient setting with sleep study Time with Patient: Greater than 30
[2017-05-27] MEDS: methylPREDNISolone SOD SUCCI 40 MG/ML 1 ML VIAL IV SCH ×3 (11:47→23:16)
--- NOTE | 2017-05-27 12:08 | P.PCN ---
Date of Procedure: 05/27/17 Preoperative Diagnosis: History of aortic valve replacement and increasing gradient across the valve Postoperative Diagnosis: The same Procedure(s) Performed: HAWK Implants: Indications for Procedure: Operative Findings: Description of Procedure: INDICATION: To assess significance of increasing gradient across the aortic valve. Rule out prosthetic valve stenosis. CONSENT: Formal consent was obtained from the patient PROCEDURE: . Patient was brought to the lab in a fasting state. He was prepped and draped in the usual fashion. The throat was sprayed with Cetacaine. A lubricated Omni probe was introduced in the oropharynx. Multiple views were obtained from the stomach and also in the esophagus. Patient tolerated the procedure well . Color Doppler, pulsed Doppler study was also performed.. Saline bubble injection was not performed CONSCIOUS SEDATION. Patient was given IV Versed 2.5 mg and fentanyl 50 g. The duration was 20 minutes FlINDINGS: The prostate. Height well seemed to be [facility]. The leaflet showed some thickening but appears to be showing satisfactory opening excursion. The left cusp seemed to be showing more thickening. Compared to the right. By planimetry. Will get a valve area of 2.3. There is no significant regurgitation. The mitral valve appears to be normal with trace regurgitation. There is mild thickening of the mitral leaflets. No clot noted in the left atrial appendage. The interatrial septum appears to be intact without any spontaneous shunt. Left ventricle function appear to be preserved. These septal hypertrophy and also sampled involving the mitral valve with evidence of outflow tract obstruction. IMPRESSION: Thickening of the valve leaflets suggestive of pannus formation. But this seemed to be satisfactory opening excursion. A peak gradient of about 59 with a mean of 29 gradient was obtained across the valve, which seemed to be stable. There is subaortic gradient of about 35 mm. PLAN: continue maximal medical therapy. Continue adequate anticoagulation. Close follow-up with his own designer
[2017-05-27 12:26] LABS: Glucose,Whole Blood 239 mg/dL (75-99)
[2017-05-27 17:02] LABS: Glucose,Whole Blood 214 mg/dL (75-99)
[2017-05-27] MEDS: WARFARIN 10 MG TAB PO SCH (17:13)
[2017-05-27] MEDS: ALPRAZolam 0.25 MG TAB PO PRN (17:13)
[2017-05-27] MEDS: HYDROcodone/APAP 10-325MG 1 EACH TAB PO PRN (17:14)
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
[2017-05-27 20:59] LABS: Glucose,Whole Blood 217 mg/dL (75-99)
[2017-05-28] MEDS: methylPREDNISolone SOD SUCCI 40 MG/ML 1 ML VIAL IV SCH ×2 (05:25→15:25)
[2017-05-28 07:34] LABS: Glucose,Whole Blood 204 mg/dL (75-99)
[2017-05-28] MEDS: IPRATROPIUM-ALBUTEROL 3 ML NEB INHALATION SCH ×4 (07:57→19:24)
[2017-05-28 08:07] LABS: INR 1.9 (<1.2); Partial Thromboplastin Time 29.5 sec (22.0-30.0)
[2017-05-28] MEDS: INSULIN LISPRO (humaLOG) 300 UNIT/3 ML VIAL SQ SCH ×4 (08:20→20:29)
[2017-05-28] MEDS: ENOXAPARIN 120 MG/0.8 ML SYRINGE SQ SCH ×2 (08:21→19:58)
[2017-05-28] MEDS: HYDROcodone/APAP 10-325MG 1 EACH TAB PO PRN ×2 (08:22→19:58)
[2017-05-28] MEDS: ALPRAZolam 0.25 MG TAB PO PRN ×2 (08:23→19:58)
[2017-05-28 11:48] LABS: Glucose,Whole Blood 293 mg/dL (75-99)
[2017-05-28 17:07] LABS: Glucose,Whole Blood 193 mg/dL (75-99)
[2017-05-28] MEDS: WARFARIN 10 MG TAB PO SCH (17:25)
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
[2017-05-28] MEDS: SODIUM CHLORIDE 0.9% 1,000 ML IV SCH (19:59)
[2017-05-28 20:23] LABS: Glucose,Whole Blood 234 mg/dL (75-99)
[2017-05-29] MEDS: methylPREDNISolone SOD SUCCI 40 MG/ML 1 ML VIAL IV SCH ×2 (00:28→07:49)
--- NOTE | 2017-05-29 06:18 | P.PN ---
Progress Note - Text This is a progress note from May 28. Patient seemed to be gradually getting better. He is on steroids. He doesn't seem to be in acute distress. Vital signs are stable. His INR is subtherapeutic. Still at 1.9. Is on Lovenox. Auscultation of Heart shows crisp metallic sounds, once his INR becomes therapeutic in the range of 2.5, patient possibly will be discharged home. Patient will have follow-up with his own campus president. Physical examination reveals a 51-year-old gentleman who appears to be alert, oriented and doesn't appear to be in acute distress. Lungs show fairly clear exchange without any significant wheezing. Heart shows a regular heart sounds with crisp metallic sounds of the prosthetic valve. No Sigmund. Edema. Final impression: #1. Pulmonary emboli. #2. Status postoperative coronary replacement with mechanical valve #3. Asthma. Plan: patient will be discharged home when INR is therapeutic. Follow-up with his own campus president
[2017-05-29 06:51] LABS: Glucose,Whole Blood 119 mg/dL (75-99)
[2017-05-29] MEDS: ALPRAZolam 0.25 MG TAB PO PRN (07:22)
[2017-05-29] MEDS: HYDROcodone/APAP 10-325MG 1 EACH TAB PO PRN (07:22)
[2017-05-29] MEDS: INSULIN LISPRO (humaLOG) 300 UNIT/3 ML VIAL SQ SCH (07:44)
[2017-05-29 07:45] VITALS: BP 142/96; PULSE 64; RESP 18; TEMP 97.5
[2017-05-29] MEDS: ENOXAPARIN 120 MG/0.8 ML SYRINGE SQ SCH (07:49)
[2017-05-29] MEDS: IPRATROPIUM-ALBUTEROL 3 ML NEB INHALATION SCH ×2 (08:30→11:16)
[2017-05-29 08:41] LABS: INR 2.6 (<1.2); Prothrombin Time 25.1 sec (9.0-12.0)
--- NOTE | 2017-05-29 22:00 | PN ---
Mr. Rhett Champion is seen, evaluated and examined. This patient is a morbidly obese 51 -year-old male who was seen on the fifth floor. The patient has been evaluated by HAWK. Findings of the HAWK has been reviewed with the patient. Even the aortic gradient is elevated but likely may very well be related to Pulmonary embolism. The patient is status post aortic valve replacement. Also has component of chronic persistent asthma. His hemodynamic status is stable. Last set of vitals include blood pressure 142/96, respiratory rate 18, pulse 64 , temperature 98, saturation 94% on room air. HEENT: Atraumatic, Normocephalic. Pharynx is clear. Narrow pharyngeal opening is present. Neck supple without lymphadenopathy or jugular venous distention or carotid bruit. Lungs good air entry bilaterally without significant rales, rhonchi or rub. Heart regular rate and rhythm. S1, S2 audible. Abdomen is soft, no rebound or rigidity. Extremities: +1 peripheral pulses. Neurological: She is otherwise awake and alert. IMPRESSION: 1. Acute pulmonary embolism, recurrent in nature. The patient has been on Lovenox and Coumadin. Once INR is 2.5 to 3, Lovenox can be discontinued. 2. Aortic valve disease with mechanically aortic valve [facility] with mild stenosis being monitored and observed. 3. Severe chronic obstructive pulmonary disease and chronic persistent asthma. 4. History of C spine disease. PLAN: As above. Continue supportive care. Follow clinical course closely. The patient expressed his wishes to be discharged. Would recommend changing IV steroids to po Prednisone. Continue anticoagulation as planned. Will follow. [facility]
--- NOTE | 2017-05-31 10:23 | DS ---
DATE OF ADMISSION: 05/24/2017 DATE OF DISCHARGE: 05/29/2017 DIAGNOSES: 1. Acute pulmonary emboli. 2. Aortic valve replacement with minimal stenosis. 3. Chronic obstructive pulmonary disease with asthma component. 4. Post cervical spine surgery. 5. Hypertension. This is a 51-year-old white male who was admitted with acute shortness of breath from the office. He had a normal D-dimer but because of his severity of acute shortness of breath, IV CT scan for pulmonary emboli was completed which was positive. Patient was immediately anticoagulated with Lovenox and covered until his INR with Coumadin at 10 mg was therapeutic. At this time his INR is up to 2.6. He feels good with no shortness of breath or chest pain. There was some feeling that the aortic valve might be a problem with the shortness of breath to evaluate by Dr. Christian including a HAWK which was within normal limits. REVIEW OF SYSTEMS: CARDIOPULMONARY: Says he has minimal shortness of breath or chest pain. No orthopnea, no paroxysmal nocturna dyspnea. O2 saturation is now okay at 95% on room air today. GI: No hematemesis, melena, hematochezia. No nausea or vomiting. NEUROMUSCULAR: Just the aches and pains and also the pain in his neck with decreased range of motion and spasm per patient. INTEGUMENTARY: Multiple tattoos and abrasions throughout his body. ENDOCRINE: Fatigue. PSYCHIATRIC: Anxiety about the PE, but is now well understood, and is ready to go home. He is much less anxious. There is no depression. Lab work, we reviewed it and the INR is at 2.6, CBC chem 17 is within normal limits. At this period of time, he is being discharged home on the following medications : 1. Baclofen 10 mg he takes up to 4 times a day. 2. He is on DuoNeb at home and he can be on that 4 times a day. 3. He is going to stay or Warfarin at 20 mg. 4. His hydrocodone is 10 - 325 four times a day p.r.n. pain. 5. Losartan is on 100 mg daily. 6. Nitroglycerine is at 0.4 mg daily. At this point he will no longer be on his Atrovent nebulizer and just to stay on his regular updrafts and he will follow up with me in the office on Wednesday. Regular diet. Pretty much resting at home. MTDRadha
== END 2017-05-29 11:05 | disposition home or self-care (01) | DRG 176 ==
LOC: EC 16:02 → 5MS5E 20:25
PROVIDERS: ADMIT Family Medicine; ATTEND Family Medicine
PROC: B246ZZ4 Ultrasonography of Right and Left Heart, Transesophageal (ICD-10-PCS; principal; 2017-05-27 08:00)
DX: I26.99 Other pulmonary embolism without acute cor pulmonale (principal); J44.0 Chronic obstructive pulmonary disease with (acute) lower respiratory infection; E66.01 Morbid (severe) obesity due to excess calories; M12.50 Traumatic arthropathy, unspecified site; Q23.1 Congenital insufficiency of aortic valve; J44.1 Chronic obstructive pulmonary disease with (acute) exacerbation; I10 Essential (primary) hypertension; G47.30 Sleep apnea, unspecified; G89.29 Other chronic pain; M19.90 Unspecified osteoarthritis, unspecified site; M46.92 Unspecified inflammatory spondylopathy, cervical region; R29.6 Repeated falls; Z79.01 Long term (current) use of anticoagulants; Z79.899 Other long term (current) drug therapy; Z83.3 Family history of diabetes mellitus; Z87.891 Personal history of nicotine dependence; Z95.2 Presence of prosthetic heart valve
CPT/HCPCS: 36415; 71020; 71275; 80053; 82550; 82553; 83735; 83880; 84484; 85025; 85379; 85610; 85730; 93005; 93306; 93312; 93320; 93325; 93970; 94640; 94760; 96372; 96374; 96375; 99285

== ENCOUNTER → 2017-11-18 | Outpatient (CLI) | payer MEDICARE, OTHER ==
[2017-11-18 09:46] LABS: Partial Thromboplastin Time 22.9 sec (22.0-30.0); Prothrombin Time 9.6 sec (9.0-12.0)
== END | disposition home or self-care (01) ==
LOC: LABWHC1 09:18
PROVIDERS: ATTEND Orthopaedic Surgery Hand Surgery
DX: Z01.812 Encounter for preprocedural laboratory examination (principal)
CPT/HCPCS: 36415; 85610; 85730

== ENCOUNTER → 2018-08-19 | Outpatient (CLI) | payer MEDICARE ==
--- NOTE | 2018-08-20 20:53 | MR ---
EXAMINATION TYPE: MR shoulder RT wo con DATE OF EXAM: 08/19/2018 COMPARISON: Right shoulder radiographs dated 07/12/2018 HISTORY: Rt shoulder pain x 5 weeks, S/P fall. Nonhealing rotator cuff tear. TECHNIQUE: Multiplanar, multisequence imaging of the right shoulder is performed without contrast. FINDINGS: Rotator Cuff: There is partial-thickness articular surface tear of the myotendinous junction of the s upraspinatus measuring 2.0 cm. Partial-thickness articular surface more distal insertional fiber tear measures 1.2 x 1.3 cm. Moderate supraspinatus tendinopathy is also seen is alteration of the intrins ic signal of the myotendinous junction and insertional fibers. Moderate tendinopathy is seen of the infraspinatus as there is also signal alteration of the myotendi nous junction and insertional fibers. The teres minor and subscapularis are of unremarkable signal and volume. Acromioclavicular Joint: There is severe acromioclavicular arthropathy with capsular hypertrophy, sub chondral cysts, joint space narrowing and marginal osteophytes creating impression upon the supraspin atus and internal impingement. There is slight downsloping of the acromion also seen. Glenohumeral Joint: There are marginal osteophytes of the humeral head and glenoid with large protube rant marginal osteophyte from the humeral head into the axillary recess. Subchondral cysts are also s een of the glenoid and humeral head. There is glenoid osseous remodeling due to arthropathy. Labrum: There is multifocal labral tearing throughout the entirety of the labrum most severe in the p osterior labrum with remodeling of the glenohumeral joint secondary to arthropathy. Biceps Tendon: The long head of biceps is in normal location within bicipital groove. There is attenu ation of the intra-articular portion of the biceps tendon near its insertion on the biceps anchor. Bone marrow signal: No focal abnormal marrow signal is appreciated other than subchondral cystic ingram ge. Other: There is a moderate joint effusion with fluid also seen in the subcoracoid bursa. Fluid overal l is complex indicative of synovitis. IMPRESSION: 1. Severe glenohumeral arthropathy with protuberant osteophyte in the axillary recess that can create axillary nerve impingement. There is remodeling of the glenohumeral joint and multifocal tearing of the labrum with associated moderate complex joint effusion indicated of synovitis and fluid within th e subcoracoid bursa. 2. Severe acromioclavicular arthropathy with evidence of internal impingement as this impresses upon the myotendinous junction of the supraspinatus. 3. Partial thickness articular surface tears of the myotendinous junction and distal insertional fibe rs of the supraspinatus. 4. Moderate supraspinatus, infraspinatus and intra-articular portion of the long head of the biceps t endinopathy.
== END | disposition home or self-care (01) ==
LOC: RADMRIMAIN 15:56
PROVIDERS: ATTEND Family Medicine
DX: M19.011 Primary osteoarthritis, right shoulder (principal); M75.101 Unspecified rotator cuff tear or rupture of right shoulder, not specified as traumatic; M25.711 Osteophyte, right shoulder; M75.81 Other shoulder lesions, right shoulder